=== PATIENT | male | born 1995 | race American Indian/Alaskan Native ===

== ENCOUNTER 2020-08-21 10:50 | Emergency (ER) | payer SELFPAY ==
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
== END 2020-08-21 11:42 | disposition home or self-care (01) ==
LOC: ED 10:50
CPT/HCPCS: 99281